=== PATIENT | female | born 1980 | race Caucasian/White ===

== ENCOUNTER → 2018-08-05 | Outpatient (CLI) | payer BC | LOC: FIMAGING 11:26 | PROVIDERS: ATTEND Advanced Practice Midwife | DX: O09.522 Supervision of elderly multigravida, second trimester (principal); Z3A.20 20 weeks gestation of pregnancy ==

== ENCOUNTER 2018-12-18 21:12 | Inpatient (IN) | payer BC ==
[2018-12-18] MEDS ORDERED: MISOPROSTOL 200 MCG TAB PO PRN (21:28)
[2018-12-18] MEDS ORDERED: IBUPROFEN 600 MG TAB PO PRN (21:28)
[2018-12-18] MEDS ORDERED: LIDOCAINE 1% 300 MG/30 ML SDV SC PRN (21:28)
[2018-12-18] MEDS ORDERED: OXYTOCIN/RINGERS LACTATE 1,000 ML IV PRN (21:28)
[2018-12-18] MEDS ORDERED: LR 1,000 ML IV PRN (21:28)
[2018-12-18] MEDS ORDERED: TERBUTALINE SULFATE 1 MG/ML VIAL IV PRN (21:28)
[2018-12-18] MEDS ORDERED: PENICILLIN G POTASSIUM 5,000,000 UNIT in D5W 150 ML IV ONE (21:28)
[2018-12-18] MEDS ORDERED: OLIVE OIL 118 ML BTL MISC PRN (21:28)
[2018-12-18] MEDS ORDERED: EPSOM SALT 454 GM TP PRN (21:28)
[2018-12-18] MEDS ORDERED: AMMONIA AROMATIC 1 EACH AMP IH PRN (21:28)
--- NOTE | 2018-12-18 21:31 | PDGENHP ---
History and Physical History and Physical: Care: [facility] HPI: Angela Durán is a 38yo with IUP@ 40-0 weeks that presents to L&D with complaints of contractions since this morning. She denies any LOF. Reports some bloody show. She reports +FM. EDC: 12/18/2018 which is based on LMP which is known and consistent with Ultrasound at 8 weeks. Her is complicated by: AMA, GBS+ Review of Systems: Constitutional: Denies any fever, chills, or fatigue HEENT: denies any visual changes, difficulty swallowing, hearing loss Cardiovascular: Denies any chest pain, palpitations, leg swelling Respiratory: denies any cough, wheezing, or shortness of breathe GI: Denies any nausea, vomiting, diarrhea, constipation : denies any dysuria, urgency, frequency, vaginal bleeding Musculoskeletal: denies any muscle or bone pain Skin: denies any rashes Neuro: denies any headache, seizures, lightheadedness, dizziness, or loss of consciousness Psychiatric: denies any depression, anxiety, or SI/HI thoughts HISTORY: Previous OB history: x2 Past medical history: h/o PPD Past surgical history: none Social: Denies any alcohol, tobacco, or drug use. to [place], 2 daughters Alem and Dawood. Teacher @ [employer] Family history: Not relevant Medications: PNV Allergies (list reaction): NKDA LABS: Rh: O+ ABS: Neg Rubella: Immune HbsAg: NR HIV: NR VDRL: NR 1hr: 107 GC: Neg Chlamydia: Neg Pap: Normal GBS: + PHYSICAL EXAM: Constitutional: WN, A&Ox3 HEENT: normocephalic atraumatic, supple Skin: Warm, dry, intact Heart: RRR, no murmur Chest: CTA-B Abdomen: Soft, nontender, gravid SVE:6/80/-2 Extremities: no edema, negative homans sign Neuro: grossly normal Psych: normal affect assessment: FHT baseline 140 +accels, no decels, moderate variability Contractions: toco q 4 Assessment: * 38y with IUP@ 40-0wks * Active labor * GBS + * cat 1 FHR tracing Plan: * Admit to L&D * IV abx 2/2 GBS+ * reassess PRN * anticipate Today's visit was approximately 30 min, of which >50% of visit 20 min, was spent face to face with pt on direct counseling/coordination of care.
[2018-12-18 21:48] LABS: PLATELET COUNT 156 10^3/uL (150-400)
--- NOTE | 2018-12-19 00:14 | OBDEL ---
Info Type: Vaginal Presentation at Delivery: Vertex L&D Analgesia/Anesthesia Type: None GBS+: Yes Antibiotic Used for + GBS: Ampicillin Intrapartum Medications: Discontinued Medications Generic Name Dose Route Start Last Admin Trade Name Duc PRN Reason Stop Dose Admin Penicillin G Potassium 5,000, 160 mls @ 160 mls/hr 12/18/18 21:28 12/18/18 22 :02 000 unit/ Dextrose IV 12/18/18 22:27 160 mls ONCE ONE Administration Protocol Indications for Delivery: Spontaneous Labor, SROM Vaginal Delivery - Delivery Provider Delivery Physician/CNM: Ifeoma Fox - Labor and Delivery Onset of Contractions Date: 12/18/18 Onset of Contractions Time: 15:00 Onset of Contractions Type: Spontaneous Rupture of Membranes Date: 12/18/18 Rupture of Membranes Time: 22:56 Rupture of Membranes Type: Spontaneous Amniotic Fluid Color: Clear Dilation Complete Date: 12/18/18 Dilation Complete Time: 22:45 Placenta Delivery Date: 12/18/18 Placenta Delivery Time: 23:19 Total Hours of Labor: 8 Laceration: 1st Degree Vaginal Sponge Count Correct: Yes Vaginal Needle Count Correct: Yes Vaginal Sweep Performed: Yes EBL: 250 Delivery Comment: mother delivered on side on floor. Dad helped catch the baby. spontaneous cry at delivery. baby to mothers chest. Data KIKE: 12/18/18 Gestational Age: 40 week(s) and 1 day(s) [place] Delivery Date: 12/18/18 Delivery Time: 23:05 Sex of : Female Score (1 Min): 8 Score (5 Min): 9 ICD10 Worksheet Patient Problems: Problems Problem Status Onset GBS (group B Streptococcus carrier), +RV culture, currently Acute (spontaneous vaginal delivery) Acute Labor established Acute - ICD10 Problem Qualifiers (1) (spontaneous vaginal delivery) (2) GBS (group B Streptococcus carrier), +RV culture, currently
[2018-12-19] MEDS ORDERED: SIMETHICONE 80 MG TAB CHEW PO PRN (00:15)
[2018-12-19] MEDS ORDERED: HYDROCORTISONE 0.5% CREAM TP PRN (00:15)
[2018-12-19] MEDS ORDERED: oxyCODONE IR 5 MG TAB PO PRN (00:15)
[2018-12-19] MEDS ORDERED: OXYTOCIN/RINGERS LACTATE 1,000 ML IV SCH (00:30)
[2018-12-19] MEDS: ACETAMINOPHEN 325 MG TAB PO PRN ×4 (00:33→18:15)
[2018-12-19] MEDS ORDERED: PENICILLIN G POTASSIUM 2,500,000 UNIT in D5W 150 ML IV SCH (01:29)
[2018-12-19] MEDS: IBUPROFEN 600 MG TAB PO PRN ×3 (06:29→18:15)
[2018-12-19] MEDS: DOCUSATE SODIUM 100 MG CAP PO PRN (11:03)
--- NOTE | 2018-12-19 14:55 | OBPP ---
Progress Note Assessment/Plan: Assessment: [id number] s/p PPD#1 Plan: routine pp care support PRN ambulate PRN anticipate d/c home tomorrow 12/19/18 14:52 Subjective/ Course: 12/19/18 14:54 Pt doing well, happy with . reports cramping moderate with . reports relief with ibuprofen. She is , ambulating, and voiding without difficulty. FOB @ BS and supportive. Objective: 12/18/18 21:40 Patient ABO/Rh O POSITIVE 12/18/18 21:40 Temp Pulse Resp BP Pulse Ox 36.1 C 72 16 124/75 H 96 12/19/18 09:00 12/19/18 09:00 12/19/18 09:00 12/19/18 09:00 12/19/18 02:05 Uterine Position/Fundal Height: Umbilicus -1, Midline Uterine Tone: Firm
[2018-12-20] MEDS: ACETAMINOPHEN 325 MG TAB PO PRN ×3 (01:08→14:27)
[2018-12-20] MEDS: IBUPROFEN 600 MG TAB PO PRN ×3 (01:08→14:27)
[2018-12-20] MEDS: DOCUSATE SODIUM 100 MG CAP PO PRN (08:11)
--- NOTE | 2018-12-20 12:05 | OBGCSDC ---
General Delivery Information - General Info : 3 Para: 3 Abortions: 0 Type: Vaginal L&D Analgesia/Anesthesia Type: None Admission Date: 12/18/18 Labs: Patient ABO/Rh O POSITIVE 12/18/18 21:40 Hct 39.3 % (38.0-47.0) 12/18/18 21:40 Temp Pulse Resp BP 12/20/18 01:10 36.1 C 65 14 115/75 12/19/18 19:29 70 117/73 12/19/18 17:00 36.9 C 75 140/90 H - Hospital Course : 12/19/18 14:54 Pt doing well, happy with . reports cramping moderate with . reports relief with ibuprofen. She is , ambulating, and voiding without difficulty. FOB @ BS and supportive. 12/20/18 12:05 S) Pt doing well, reports min pain and bleeding. she is ambulating and voiding without difficulty. She is . She desires discharge home today. O) VSS, afebrile constitutional: WNWF, A&Ox3 HEENT: normocephalic, atraumatic, supple Heart: RRR, No murmur Chest: CTA-B Abdomen: Soft, nontender Uterus: Firm at U-2 Lochia: Minimal rubra Perineum: Intact, healing well Extremities: Trace edema, and negative Nela's sign Neuro: Grossly normal A) 38 year-old P3 S/P PPD#2 P) Discharge home today Continue Pelvic rest x6wks Discussed danger signs (infection, preeclampsia, depression, heavy bleeding, etc) RTO in 2/4/6 weeks 12/20/18 12:54 Vaginal - Delivery Provider Delivery Physician/CNM: Ifeoma Fox - Diagnosis Labor: Spontaneous Rupture of Membranes Type: Spontaneous Amniotic Fluid Color: Clear Laceration: 1st Degree - Delivery EBL: 250 [place] Data KIKE: 12/18/18 Gestational Age: 40 week(s) and 2 day(s) [place] Delivery Date: 12/18/18 Delivery Time: 23:05 Sex of Infant: Female [place] Weight (gm): 3620 kg Score (1 Min): 8 Score (5 Min): 9 Discharge Information - Discharge Information Condition: Good Instruction/Follow Up: Two Weeks, Four Weeks, Six Weeks
[2018-12-20 12:17] VITALS: BP 120/79
== END 2018-12-20 16:20 | disposition home or self-care (01) | DRG 807 ==
LOC: FLD 21:12 → FOB 12-19 01:37
PROVIDERS: ADMIT Advanced Practice Midwife; ATTEND Advanced Practice Midwife
PROC: 10E0XZZ Delivery of Products of Conception, External Approach (ICD-10-PCS; principal; 2018-12-18)
DX: O70.0 First degree perineal laceration during delivery (principal); O99.820 Streptococcus B carrier state complicating pregnancy; Z3A.40 40 weeks gestation of pregnancy; Z37.0 Single live birth
CPT/HCPCS: J2540